=== PATIENT | female | born 2000 ===

== ENCOUNTER 2022-04-08 18:48 | Inpatient (IN) | payer MEDICAID ==
[2022-04-08] MEDS ORDERED: ACETAMINOPHEN 325 MG TAB PO PRN (21:40)
[2022-04-08] MEDS ORDERED: CARBOPROST TROMETHAMINE 250 MCG/1 ML INJ IM PRN (21:40)
[2022-04-08] MEDS ORDERED: BUTORPHANOL 2 MG/1 ML INJ IV PRN (21:40)
[2022-04-08] MEDS ORDERED: fentaNYL 100 MCG/2 ML INJ IV PRN (21:40)
[2022-04-08 21:45] LABS: Basophils % (Auto) 0.1 % (0.0-1.8); Eosinophils % (Auto) 0.2 % (0.0-4.3); Hematocrit 36.7 % (30.3-42.9); Hemoglobin 12.7 gm/dl (10.1-14.3); Lymphocytes # (Auto) 2.2 K/mm3 (1.2-5.4); Mean Corpuscular HGB Conc 35 % (30-34); Mean Corpuscular Volume 84 fl (79-97); Platelet Count 240 K/mm3 (140-440); Red Blood Count 4.35 M/mm3 (3.65-5.03); Red Cell Distribution Width 13.8 % (13.2-15.2)
[2022-04-08] MEDS ORDERED: LACTATED RINGERS 1,000 ML IV SCH (21:45)
--- NOTE | 2022-04-08 21:51 | History and Physical Report ---
History of Present Illness Date of examination: 04/08/22 Date of admission: 04/08/2022 Chief complaint: Induction of labor secondary to pre-eclampsia and post-due date. History of present illness: 22-year-old primagravida at 40 weeks gestation presents to labor and delivery for induction of labor secondary to pre-eclampsia and post due date. During a routine visit 2 days ago, blood pressure was >=140/90. The patient was scheduled for induction of labor today. She does not have a history of essential hypertension prior to , nor does she report a history of elevated blood pressure prior to 20 weeks gestation. However, full record is not available at this time to confirm this. Today, blood pressure is >=140/90 in labor and delivery. The patient denies headaches, diplopia, right upper quadrant pain, or scotomata. UPCR is elevated and estimated 24 hour urine protein is 420 mg. Hence, this patient fulfills the contemporary criteria for pre-eclampsia. As such, induction of labor is medically indicated at this gestational age. The patient is admitted to labor and delivery for induction of labor secondary to pre-eclampsia and post due date. 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 Family/Genetic History: diabetes, hypertension, other (Asthma) Social history: no significant social history - Obstetrical History Expected Date of Delivery: 04/08/22 Actual Gestation: 40 Week(s) 1 Day(s) : 1 Para: 0 Hx # Term Pregnancies: 0 Number of Pregnancies: 0 Spontaneous Abortions: 0 Induced : 0 Number of Living Children: 0 Medications and Allergies Allergies Allergy/AdvReac Type Severity Reaction Status Date / Time cefazolin Allergy Unknown Verified 04/08/22 21:10 Sulfa (Sulfonamide Allergy Unknown Verified 04/08/22 21:10 Antibiotics) Active Meds: Active Medications Acetaminophen (Acetaminophen 325 Mg Tab) 650 mg PO Q4H PRN PRN Reason: Pain, Mild (1-3) Butorphanol Tartrate (Butorphanol 2 Mg/1 Ml Inj) 2 mg IV Q2H PRN PRN Reason: Pain, Moderate(4-6) LABOR PAIN Carboprost Tromethamine (Carboprost Tromethamine 250 Mcg/1 Ml Inj) 250 mcg IM ONCE PRN PRN Reason: Uterine Bleeding Fentanyl (Fentanyl 100 Mcg/2 Ml Inj) 100 mcg IV Q2H PRN PRN Reason: Pain,Severe (7-10) LABOR PAIN Lactated Ringer's (Lactated Ringers) 1,000 mls @ 125 mls/hr IV DIRECT RODGER Oxytocin/Sodium Chloride (Pitocin/Ns 30 Unit/500ml) 30 units in 500 mls @ 40 mls/hr IV TITR RODGER; Protocol Misoprostol (Misoprostol 25 Mcg Tab) 25 mcg PO Q4H RODGER Stop: 04/09/22 10:01 Terbutaline Sulfate (Terbutaline 1 Mg/1 Ml Inj) 0.25 mg SUB-Q ONCE PRN PRN Reason: Hyperstimulation/Hypertonicity Review of Systems All systems: negative - Vital Signs Vital signs: Vital Signs Pulse Pulse Ox 92 H 97 04/08/22 20:07 04/08/22 20:07 Temp Pulse Resp BP Pulse Ox 91 H 135/80 97 04/08/22 21:47 04/08/22 21:28 04/08/22 21:47 - Physical Exam Cardiovascular: Regular rate Lungs: Positive: Normal air movement Abdomen: Positive: normal appearance Genitourinary (Female): Positive: normal external genitalia, normal perenium Vulva: both: normal Vagina: Positive: normal moisture Uterus: Positive: enlarged Adnexa: both: normal Anus/Rectum: Positive: normal perianal skin Extremities: Positive: normal Deep Tendon Reflex Grade: Normal +2 - Obstetrical FHR: category 1 Cervical Dilatation: 2.5 (Mid) Cervical Effacement Percentage: 50 (Medium) station: -3 Uterine Contraction Pattern: Irregular Results Result Diagrams: 04/08/22 20:45 04/08/22 20:45 Abnormal lab results 04/08/22 Range/Units 20:45 WBC 12.8 H (4.5-11.0) K/mm3 MCHC 35 H (30-34) % [place] % (Auto) 8.0 H (0.0-7.3) % [place] # (Auto) 1.0 H (0.0-0.8) K/mm3 Seg Neutrophils % 74.7 H (40.0-70.0) % Seg Neutrophils # 9.6 H (1.8-7.7) K/mm3 Urine Protein to Creatinine Ratio (UPCR)= 0.35. There is significant proteinuria. Estimated 24 hour urine protein= 420 mg Ultrasound: report reviewed (OB Ultrasound Limited= SLIUP. Vertex. Anterior placenta. EFW= 3460 g (36th %-ile). LORENZA= 10.4 cm.), image reviewed Assessment and Plan - Patient Problems (1) 40 weeks gestation of Current Visit: Yes Status: Acute Plan to address problem: care is up-to-date at [facility]. 1 hour glucose tolerance test is normal. The patient is GBS negative. (2) Pre-eclampsia, mild, third trimester Current Visit: Yes Status: Acute Plan to address problem: During a routine visit 2 days ago, blood pressure was >=140/90. The patient was scheduled for induction of labor today. She does not have a history of essential hypertension prior to , nor does she report a history of elevated blood pressure prior to 20 weeks gestation. However, full record is not available at this time to confirm this. Today, blood pressure is >=140/90 in labor and delivery. The patient denies headaches, diplopia, right upper quadrant pain, or scotomata. UPCR is elevated and estimated 24 hour urine protein is 420 mg. Hence, this patient fulfills the contemporary criteria for pre-eclampsia. As such, induction of labor is medically indicated at this gestational age. (3) Postmaturity , 40-42 weeks gestation Current Visit: Yes Status: Acute Plan to address problem: Today is the patient's due date. Per data from the ARRIVE trial, induction of labor at this gestational age can significantly lower frequency of delivery. Therefore, the plan is induction of labor. (4) Encounter for planned induction of labor Current Visit: Yes Status: Acute Plan to address problem: Boyce score is 4. Place Cook's catheter to gentle traction for cervical ripening. Add oral Cytotec to augment cervical ripening. In addition, add intravaginal Monoket to augment cervical ripening.
[2022-04-08] MEDS ORDERED: miSOPROStol 25 MCG TAB PO SCH (22:00)
[2022-04-08] MEDS ORDERED: OXYTOCIN DRIP 30 UNITS/500 ML BAG IV SCH (22:00)
[2022-04-08 22:02] LABS: Alanine Aminotransferase 23 units/L (7-56); Uric Acid 4.2 mg/dL (3.5-7.6)
--- NOTE | 2022-04-08 23:11 | Ultrasound Report ---
US OB follow up INDICATION / CLINICAL INFORMATION: Chronic hypertension COMPARISON: None available. TECHNIQUE: Using a transcutaneous probe, multiple grayscale, color Doppler, and spectral Doppler imag es of the uterus and fetus were captured and stored. FINDINGS: Single cephalic fetus heart rate 151. Amniotic fluid index within normal, LORENZA 10.4 cm. Anterior grade 3 placenta. measurements as documented on study result in an estimated gestational age of 37 weeks 4 days, EDC 04/25/2022. Estimated weight 2460 g; 36% growth percentile. IMPRESSION: 1. Single living fetus as detailed. Signer Name: Lacho Fletcher II, MD Signed: 04/08/2022 11:06 PM Workstation Name: [id number]
[2022-04-09] MEDS: TERBUTALINE 1 MG/1 ML INJ SUB-Q PRN ×2 (02:01→02:14)
[2022-04-09] MEDS ORDERED: TERBUTALINE 1 MG/1 ML INJ ONE (02:11)
[2022-04-09] MEDS ORDERED: SODIUM CHLORIDE 0.9% 1000 ML 1,000 ML VG SCH ×2 (02:15)
[2022-04-09] MEDS ORDERED: hydrALAZINE 20 MG/1 ML INJ IV STA (02:32)
[2022-04-09] MEDS ORDERED: TERBUTALINE 1 MG/1 ML INJ SUB-Q PRN (02:38)
--- NOTE | 2022-04-09 02:42 | Anesthesia Day of Surgery ---
Anesthesia Day of Surgery - Day of Surgery Patient Examined: Yes Patient H&P Reviewed: Yes Patient is NPO: Yes
--- NOTE | 2022-04-09 02:46 | Anesthesia Consultation ---
Anesthesia Consult and Med Hx Date of service: 04/09/22 - Airway Anesthetic Teeth Evaluation: Good Mallampati Class: Class II Intubation Access Assessment: Probably Good - Pulmonary Exam CTA: Yes - Cardiac Exam Cardiac Exam: RRR - Pre-Operative Health Status ASA Pre-Surgery Classification: ASA3 Proposed Anesthetic Plan: Spinal - Pulmonary Hx Smoking: No Hx Asthma: No COPD: No Hx Pneumonia: No - Cardiovascular System Hx Hypertension: Yes (CHTN) - Central Nervous System Hx Seizures: No Hx Psychiatric Problems: No - Endocrine Hx Renal Disease: No Hx End Stage Renal Disease: No Hx Hypothyroidism: No Hx Hyperthyroidism: No - Hematic Hx Anemia: No Hx Sickle Cell Disease: No - Other Systems Hx Alcohol Use: No Hx Substance Use: No Hx Obesity: Yes
[2022-04-09] MEDS ORDERED: AZITHROMYCIN/NS 500 MG/250 ML 500 MG/250 ML BAG IV ONE (06:08)
[2022-04-09] MEDS ORDERED: METOCLOPRAMIDE 10 MG/2 ML INJ IV ONE (06:08)
[2022-04-09] MEDS ORDERED: BICITRA ORAL LIQD 30ML PO ONE (06:08)
[2022-04-09] MEDS ORDERED: FAMOTIDINE 20 MG/2 ML INJ IV ONE (06:08)
[2022-04-09] MEDS ORDERED: GENTAMICIN 0 MG in SODIUM CHLORIDE 0.9% 100 ML IV ONE (06:08)
[2022-04-09] MEDS ORDERED: BUPIVACAINE/PF (0.5%) 5 MG/1 ML 30 ML VIAL INFILTRATI ONE (06:14)
[2022-04-09] MEDS ORDERED: ONDANSETRON 4 MG/2 ML INJ ONE (06:20)
--- NOTE | 2022-04-09 06:28 | Event Note ---
Date: 04/09/22 The cervix was ripened with Cook's catheter, oral Cytotec, and vaginal Monoket. Category II EFM noted. Conservative resuscitative measures (i.e. amnioinfusion, fluid bolus, position changes, and subcutaneous Terbutaline) applied. The patient progressed to 3 cm. Despite conservative resuscitative measures (i.e. amnioinfusion, fluid bolus, position changes, and subcutaneous Terbutaline) the electronic monitoring tracing progressed from category II to category III. Expeditied delivery was recommended. At that time, the patient was remote from complete cervical dilation and a vaginal delivery was impractical. Therefore, decision was made to proceed with an urgent primary low transverse section.
[2022-04-09] MEDS ORDERED: WATER FOR IRRIG STERILE 1,500 ML BOTTLE IR ONE (06:55)
[2022-04-09] MEDS ORDERED: SODIUM CHLORIDE 0.9% IRR 1,500 ML BOTTLE IR ONE (06:55)
[2022-04-09] MEDS ORDERED: GENTAMICIN/NS 120MG/100ML 120 MG/100 ML BAG IV ONE (07:00)
[2022-04-09] MEDS ORDERED: PHENYLEPHRINE/NS 1,000 MCG/10 ML SYRINGE (OR USE) IV ONE (07:18)
[2022-04-09 07:23] LABS: Creatinine,Urine 105.7 mg/dL (0.1-20.0)
[2022-04-09] MEDS ORDERED: LACTATED RINGERS 1,000 ML ONE ×2 (07:34→09:36)
[2022-04-09] MEDS ORDERED: dexAMETHasone 20 MG/5 ML VIAL ONE (07:34)
[2022-04-09 07:41] LABS: Hyaline Casts,Urine 4 /LPF; Mucus,Urine FEW /HPF; RBC,Urine < 1.0 /HPF (0.0-6.0)
[2022-04-09 07:51] LABS: Color,Urine Yellow (Yellow)
--- NOTE | 2022-04-09 09:03 | Procedure Note ---
OB Delivery Note - Delivery Date of Delivery: 04/09/22 Surgeon: NAPOLEON FUENTES Estimated blood loss: other (943 mL) - Section Preop diagnosis: other (1.) Category 3 EFM, 2.) Preeclampsia, 3.) Meconium) Postop diagnosis: other (1.) Same, 2.) Cephalopelvic disproportion) section procedure: section, primary low transverse Disposition: PACU Complications: none Narrative: PREOPERATIVE DIAGNOSES: 1. Intrauterine at 40-1/7 weeks. 2. Category III electronic monitoring tracing. 3. Pre-eclampsia. POSTOPERATIVE DIAGNOSES: 1. Same. 2. Cephalopelvic disproportion. PROCEDURE PERFORMED: Primary low-transverse section. SURGEON: Napoleon Fuentes M.D. ANESTHESIA: Spinal. FLUIDS: 1,900 mL LR. ESTIMATED BLOOD LOSS: 1,000 mL. QUANTITATIVE BLOOD LOSS: 943 mL. URINE OUTPUT: 500 mL COMPLICATIONS: None. PATHOLOGY: Placenta sent for pathologic examination. DISPOSITION: To PACU. FINDINGS: Female infant in cephalic presentation, weight 3,600 grams. Apgars were 6 at 1 minute, 7 at 5 minutes, and 8 at 10 minutes. Normal uterus, tubes, and ovaries were noted. The bony maternal pelvis had a smaller diameter inlet compared to the diameter of the head; hence, cephalopelvic disproportion was suspected. INDICATIONS: The patient is a 22-year-old 1, para 0 female, at 40 weeks gestation who presented to labor and delivery for induction of labor secondary to pre-eclampsia and post-due date. The cervix was ripened with Cook's catheter, oral Cytotec, and vaginal Monoket. The patient progressed to 3 cm. Despite conservative resuscitative measures (i.e. amnioinfusion, fluid bolus, position changes, and subcutaneous Terbutaline) the electronic monitoring tracing progressed from category II to category III. Expeditied delivery was recommended. At that time, the patient was remote from complete cervical dilation and a vaginal delivery was impractical. Therefore, decision was made to proceed with an urgent primary low transverse section. The procedure was described to the patient in detail including possible risks of bleeding, infection, injury to surrounding organs, and possible need for further surgery. Informed consent was obtained prior to proceeding with the procedure. PROCEDURE NOTE: The patient was taken to the operating room where spinal anesthesia was found to be adequate. The patient was prepped and draped in the usual sterile fashion in the dorsal supine position with a left-valle tilt. A Pfannenstiel skin incision was made with the scalpel and carried through to the underlying layer of fascia using the Bovie. The fascia was incised in the midline with the Bovie and extended laterally using the Bovie. David clamps were used to elevate the superior aspect of the fascial incision, which was elevated, and the underlying rectus muscles were dissected off using the Bovie. Attention was then turned to the inferior aspect of the fascial incision, which in similar fashion was grasped with Dvaid clamps, elevated, and the underlying rectus muscles were dissected off using the Bovie and Michaels scissors. The rectus muscles were in the midline with the Bovie. The peritoneum was sharply dissected, entered with the Metzenbaum scissors, and extended superiorly and inferiorly with the Bovie. There was good visualization of the bladder. The bladder blade was inserted. The vesicouterine peritoneum was identified with pickups and entered sharply using Metzenbaum scissors. This incision was extended laterally and the bladder flap was created digitally. The bladder blade was reinserted. The lower uterine segment was incised in a transverse fashion using the scalpel and extended using manual traction. Meconium stained fluid was noted. The 's head was delivered. The nose and mouth were bulb suctioned. There was a nuchal cord that was manually reduced. The remained of the infant was subsequently delivered atraumatically. The cord was clamped and cut. The infant was subsequently handed to the awaiting nursery nurse. Next, cord blood was obtained. Subsequent to the collection of this blood, the placenta was removed spontaneously intact with a 3-vessel cord noted. The uterus was exteriorized and cleared of all clots and debris. The uterine incision was repaired in 1 full-thickness layer using 0 Monocryl suture in a running fashion. The vesicouterine peritoneum was reapproximated with 3-0 Vicryl in a running fashion. Hemostasis was visualized. The uterus was returned to the abdomen. The pelvis was copiously irrigated. The uterine incision was reexamined and was noted to be hemostatic. The parietal peritoneum was reapproximated with 3-0 Vicryl in a running fashion. The rectus muscles were reapproximated in the midline using 2-0 Chromic. The fascia was closed with 0 Vicryl in a running fashion, the subcutaneous layer was closed with 3-0 Chromic, and the subdermal layer was reapproximated with 3-0 Vicryl. The skin edges were tension-free; therefore, the skin was reapproximated with Dermabond. Sponge, lap, and instrument counts were correct x2. The patient was stable at the completion of the procedure and was subsequently transferred to the recovery room in stable condition. Tranverse abdominal plane block for enhanced recovery after surgery (ERAS) was scheduled to be performed in the PACU by the Anesthesia team. - Infant A at 1 minute: 6 at 5 minutes: 7 Infant Gender: Female (Apgars 6/7/8. Weight 3600 g.)
[2022-04-09] MEDS ORDERED: SIMETHICONE 80 MG CHEW TAB PO PRN (10:00)
[2022-04-09] MEDS ORDERED: ONDANSETRON 4 MG/2 ML INJ IV PRN (10:00)
[2022-04-09] MEDS ORDERED: ACETAMINOPHEN 325 MG TAB PO PRN (10:00)
[2022-04-09] MEDS ORDERED: NALOXONE 0.4 MG/1 ML INJ IV PRN (10:00)
[2022-04-09] MEDS ORDERED: LANOLIN/ZINC/DIMETHICONE (LANSINOH) 7 GM TP PRN (10:00)
[2022-04-09] MEDS ORDERED: WITCH HAZEL/ GLYCERIN PAD TP PRN (10:00)
--- NOTE | 2022-04-09 11:09 | Progress Note ---
Spinal Anesthesia Block - Spinal Anesthesia Block Start Time: 06:30 Stop Time: 06:40 Performed by:: JENIFER THOMSON Procedure: Patient IDed, H&P reviewed, all questions and concerns were answered, and consent was signed. Timeout was performed at bedside. Patient in sitting position. Sterile prep and drape was performed. [3] ml of 1% lidocaine skin wheal at L[3]- L [4]. Needle introducer advanced. 25 gauge spinal needle advanced. Clear, free flowing CSF. negative blood, negative paresthesia. Spinal dose given. All needles removed. Patient tolerated procedure.
--- NOTE | 2022-04-09 11:11 | Progress Note ---
Regional Anesthesia Block - Regional Anesthesia Block Performed By:: JENIFER THOMSON Procedure: Patient consented for TAP block for post surgical pain management. Patient identified, monitors placed, and time out performed. TAP identified bilaterally via ultrasound. Skin prepped bilaterally with [chlorhexidine] and [22g stimuplex] needle advanced to the TAP. [Marcaine 0.22% 35ml] injected under ultrasound guidance on the [left] side. [Marcaine 0.22% 35ml] injected under ultrasound guidance on the [right] side. Negative aspiration every 5mL, No change in heart rate or rhythm. Patient tolerated the procedure well. No apparent complications seen.
[2022-04-09] MEDS ORDERED: MORPHINE 4 MG/1 ML INJ IV PRN (17:49)
[2022-04-09] MEDS ORDERED: LACTATED RINGERS 1,000 ML IV SCH (19:15)
[2022-04-10] MEDS: HYDROcodone/ACETAMINOPHEN 5-325 MG TAB PO PRN ×3 (03:14→17:51)
[2022-04-10] MEDS ORDERED: SODIUM CHLORIDE 0.9% 500 ML 500 ML IV SCH (06:00)
[2022-04-10 06:12] LABS: Basophils # (Auto) 0.1 K/mm3 (0.0-0.1); Basophils % (Auto) 0.6 % (0.0-1.8); Hematocrit 32.5 % (30.3-42.9); Hemoglobin 10.9 gm/dl (10.1-14.3); Lymphocytes # (Auto) 0.9 K/mm3 (1.2-5.4); Lymphocytes % (Auto) 5.9 % (13.4-35.0); Mean Corpuscular HGB Conc 34 % (30-34); Mean Corpuscular Volume 86 fl (79-97); Monocytes # (Auto) 0.6 K/mm3 (0.0-0.8); Monocytes % (Auto) 3.9 % (0.0-7.3); Platelet Count 212 K/mm3 (140-440); Red Blood Count 3.78 M/mm3 (3.65-5.03); Red Cell Distribution Width 14.4 % (13.2-15.2)
[2022-04-10] MEDS: ACETAMINOPHEN 500 MG TAB PO PRN ×3 (06:17→20:52)
[2022-04-10] MEDS: GENTAMICIN/NS 100 MG/100 ML 100 MG/100 ML BAG IV SCH ×3 (06:20→22:27)
--- NOTE | 2022-04-10 06:36 | Progress Note ---
Assessment and Plan A: POD # 1 - Febrile P: Gent and clindamycin started Continue with post op care CBC pending Subjective - Subjective Date of service: 04/10/22 Principal diagnosis: POD # 1 Interval history: Temp 100.6, and increase in Heart Rate secondary to Fever. Gent and clindamycin started Patient reports: appetite normal [place]: doing well Objective - Vital Signs Latest vital signs: Vital Signs Temp Pulse Resp BP BP Pulse Ox Pulse Ox 04/10/22 06:14 98 04/10/22 05:45 100.6 F H 04/10/22 04:53 99.5 F 119 H 18 132/53 97 04/10/22 03:13 98 04/10/22 01:13 99.6 F 108 H 18 130/60 98 04/09/22 23:30 98 04/09/22 21:25 98 04/09/22 21:16 98.3 F 99 H 18 129/59 98 04/09/22 20:35 98 04/09/22 18:25 97.8 F 90 18 116/48 99 04/09/22 11:40 98.7 F 79 14 106/51 99 99 04/09/22 09:55 98 F 90 20 101/42 100 04/09/22 09:45 94 H 18 93/48 99 04/09/22 09:30 96 H 18 93/50 99 04/09/22 09:16 90 18 97/56 99 04/09/22 09:06 90 18 88/64 99 04/09/22 09:00 91 H 18 110/57 99 04/09/22 08:53 97.8 F 103 H 23 107/56 99 Intake and Output 04/09/22 04/09/22 04/10/22 14:59 22:59 06:59 Intake Total 2100 240 480 Output Total 730 1250 200 Balance 1370 -1010 280 Intake: IV 2100 Intake, Free Water 240 480 Output: Urine 730 1250 200 Indwelling Catheter 1250 Void 200 Other: Total, Output Amount 250 200 # Voids Indwelling Catheter 1,400 Estimated Blood Loss 943 - Exam Breasts: Present: deferred Cardiovascular: Present: Regular rate Lungs: Present: Clear to auscultation Abdomen: Present: soft Uterus: Present: fundal height below umbilicus Extremities: Present: normal Deep Tendon Reflex Grade: Normal +2 Incision: Present: dressed - Labs Labs: Abnormal lab results 04/09/22 04/10/22 Range/Units Unknown 05:56 WBC 15.0 H (4.5-11.0) K/mm3 Lymph % (Auto) 5.9 L (13.4-35.0) % Lymph # (Auto) 0.9 L (1.2-5.4) K/mm3 Seg Neutrophils % 89.6 H (40.0-70.0) % Seg Neutrophils # 13.4 H (1.8-7.7) K/mm3 Urine Creatinine 105.7 H (0.1-20.0) mg/dL Urine Total Protein 37 H (5-11.8) mg/dL
--- NOTE | 2022-04-10 08:36 | Post Anesthesia Evaluation ---
- Post Anesthesia Evaluation Patient Participated: Yes Airway Patent: Yes Stable Respiratory Function: Yes Nausea/Vomiting: No Temp > 96.8F: Yes Pain Manageable: Yes Adequeate Hydration: Yes Anesthesia Complications: No Block Receding Appropriately: Yes Patient on Ventilator: No
[2022-04-10] MEDS ORDERED: IBUPROFEN 800 MG TAB PO PRN (14:44)
[2022-04-11] MEDS: HYDROcodone/ACETAMINOPHEN 5-325 MG TAB PO PRN (03:48)
--- NOTE | 2022-04-11 11:10 | Event Note ---
Date: 04/11/22 (3785) PPOD#2 with tachycardia, Dr Delvalle ordered EKG Rn called with Abn EKG Sinus tach, with multiple ventricle premature complex and probable left atrial enlargement Called hospitalist Dr. Hugo, informed of consult in place, discussed pt Per Dr. Hugo, start ns @125/hr Order placed. Pt without chest pain
[2022-04-11] MEDS ORDERED: SODIUM CHLORIDE 0.9% 1000 ML 1,000 ML IV SCH (11:15)
[2022-04-11 12:23] LABS: Basophils % (Auto) 0.1 % (0.0-1.8); Hematocrit 33.1 % (30.3-42.9); Hemoglobin 10.9 gm/dl (10.1-14.3); Lymphocytes # (Auto) 1.5 K/mm3 (1.2-5.4); Lymphocytes % (Auto) 8.7 % (13.4-35.0); Mean Corpuscular HGB Conc 33 % (30-34); Mean Corpuscular Volume 86 fl (79-97); Monocytes # (Auto) 1.2 K/mm3 (0.0-0.8); Monocytes % (Auto) 6.8 % (0.0-7.3); Platelet Count 229 K/mm3 (140-440); Red Blood Count 3.84 M/mm3 (3.65-5.03); Red Cell Distribution Width 14.2 % (13.2-15.2)
--- NOTE | 2022-04-11 14:40 | Progress Note ---
Assessment and Plan A: POD #2 Primary Csection Tachycardia, abn EKG P: Continue antibiotics consult with [facility] (Dr. Hugo) Continue routine PP orders Subjective - Subjective Principal diagnosis: POD # 2 Patient reports: appetite normal, voiding normally, pain well controlled, ambulating normally : in NICU Objective - Vital Signs Latest vital signs: Vital Signs Temp Pulse Resp BP BP Pulse Ox Pulse Ox 04/11/22 13:13 98.4 F 135 H 18 130/71 100 04/11/22 09:25 120 H 04/11/22 09:16 97.6 F 130 H 18 131/63 97 04/11/22 03:48 18 04/11/22 00:00 98.4 F 74 16 112/72 04/10/22 20:52 20 04/10/22 19:59 98.0 F 18 117/63 04/10/22 19:52 98 04/10/22 16:45 98.2 F 103 H 20 115/62 99 04/10/22 14:37 99.3 F Intake and Output 04/10/22 04/11/22 04/11/22 23:59 07:59 15:59 Intake Total 420 Balance 420 Intake: Oral 320 Intake, Free Water 100 Other: Total, Intake Amount 320 # Voids Void 1 - Exam Breasts: Present: deferred Cardiovascular: Present: Other (Tachycardia, EKG:ST, Ventricul premature complex, probale left atrial enlargement, consult to [facility] for eval) Lungs: Present: Clear to auscultation Abdomen: Present: normal appearance, soft, tenderness Uterus: Present: firm, fundal height below umbilicus Deep Tendon Reflex Grade: Normal +2 Incision: Present: dry, intact (durmabond) - Labs Labs: Abnormal lab results 04/11/22 Range/Units 10:54 WBC 16.9 H (4.5-11.0) K/mm3 Lymph % (Auto) 8.7 L (13.4-35.0) % [place] # (Auto) 1.2 H (0.0-0.8) K/mm3 Seg Neutrophils % 84.4 H (40.0-70.0) % Seg Neutrophils # 14.3 H (1.8-7.7) K/mm3
--- NOTE | 2022-04-11 17:41 | Consultation ---
History of Present Illness - Reason for Consult Consult date: 04/11/22 Medical management Requesting physician: MERARI SHRESTHA - History of Present Illness 22-year-old primagravida at 40 weeks gestation presents to labor and delivery for induction of labor secondary to pre-eclampsia and post due date. During a routine visit 2 days ago, blood pressure was >=140/90. The patient was scheduled for induction of labor today. She does not have a history of essential hypertension prior to , nor does she report a history of elevated blood pressure prior to 20 weeks gestation. However, full record is not available at this time to confirm this. Today, blood pressure is >=140/90 in labor and delivery. The patient denies headaches, diplopia, right upper quadrant pain, or scotomata. UPCR is elevated and estimated 24 hour urine protein is 420 mg. Hence, this patient fulfills the contemporary criteria for pre-eclampsia. As such, induction of labor is medically indicated at this gestational age. The patient was admitted to labor and delivery for induction of labor secondary to pre-eclampsia and post due date. Patient is s/p delivery Past History Past Medical History: other (Obesity) Past Surgical History: other (Cone biopsy) DIGITAL MEDIA DIRECTOR History: abnormal PAP smear Family/Genetic History: diabetes, hypertension, other (Asthma) Social history: no significant social history - Obstetrical History Expected Date of Delivery: 04/08/22 Actual Gestation: 40 Week(s) 1 Day(s) : 1 Para: 1 Hx # Term Pregnancies: 1 Number of Pregnancies: 0 Spontaneous Abortions: 0 Induced : 0 Number of Living Children: 0 Medications and Allergies Allergies Allergy/AdvReac Type Severity Reaction Status Date / Time cefazolin Allergy Unknown Verified 04/08/22 21:10 Sulfa (Sulfonamide Allergy Unknown Verified 04/08/22 21:10 Antibiotics) Review of Systems All systems: negative Past History Social history: no significant social history Medications and Allergies Allergies Allergy/AdvReac Type Severity Reaction Status Date / Time cefazolin Allergy Unknown Verified 04/08/22 21:10 Sulfa (Sulfonamide Allergy Unknown Verified 04/08/22 21:10 Antibiotics) Home Medications Medication Instructions Recorded Confirmed Last Taken Type No Known Home Medications [No 04/11/22 04/11/22 Unknown History Reported Home Medications] Active Meds: Active Medications Acetaminophen (Acetaminophen 500 Mg Tab) 1,000 mg PO Q6H PRN PRN Reason: Pain, Mild (1-3) Last Admin: 04/10/22 20:52 Dose: 1,000 mg Hydrocodone Bitart/Acetaminophen (Hydrocodone/Acetaminophen 5-325 Mg Tab) 1 each PO Q6H PRN PRN Reason: Pain, Moderate (4-6) Last Admin: 04/11/22 03:48 Dose: 1 each Lactated Ringer's (Lactated Ringers) 1,000 mls @ 125 mls/hr IV DIRECT RODGER Sodium Chloride (Nacl 0.9% 500 Ml) 500 mls @ 50 mls/hr IV DIRECT RODGER Last Admin: 04/10/22 06:19 Dose: 50 mls/hr Sodium Chloride (Nacl 0.9% 1000 Ml) 1,000 mls @ 125 mls/hr IV DIRECT RODGER Last Admin: 04/11/22 13:41 Dose: 125 mls/hr Ibuprofen (Ibuprofen 800 Mg Tab) 800 mg PO Q8H PRN PRN Reason: Pain, Mild (1-3) Morphine Sulfate (Morphine 4 Mg/1 Ml Inj) 4 mg IV Q3H PRN PRN Reason: Pain , Severe (7-10) Last Admin: 04/09/22 20:56 Dose: 4 mg Multi-Ingredient Ointment (Lanolin/Zinc/Dimethicone (Lansinoh) 7 Gm) 1 applic T P PRN PRN PRN Reason: dryness/cracking Naloxone HCl (Naloxone 0.4 Mg/1 Ml Inj) 0.1 mg IV Q2MIN PRN PRN Reason: Res Rate </= 8 or 02 SAT < 92% Ondansetron HCl (Ondansetron 4 Mg/2 Ml Inj) 4 mg IV Q8H PRN PRN Reason: Nausea And Vomiting Simethicone (Simethicone 80 Mg Chew Tab) 80 mg PO Q6H PRN PRN Reason: Gas pain Sodium Chloride (Sodium Chloride 0.9% 10 Ml Flush Syringe) 10 ml IV PRN NR Stop: 04/14/22 08:59 Witch Ananya/Glycerin (Witch Ananya/ Glycerin Pad) 1 each TP PRN PRN PRN Reason: Hemorrhoids/cleansing/soothing Exam - Constitutional Vitals: Temp Pulse Resp BP Pulse Ox 98.4 F 135 H 18 130/71 100 04/11/22 13:13 04/11/22 13:13 04/11/22 13:13 04/11/22 13:13 04/11/22 13:13 General appearance: Present: no acute distress, well-nourished - EENT Eyes: Present: PERRL ENT: hearing intact, clear oral mucosa - Neck Neck: Present: supple, normal ROM - Respiratory Respiratory effort: normal Respiratory: bilateral: CTA - Cardiovascular Heart rate: 120 Rhythm: regular Heart Sounds: Present: S1 & S2. Absent: rub, click - Extremities Extremities: pulses symmetrical, No edema Peripheral Pulses: within normal limits - Abdominal General gastrointestinal: Present: soft, non-tender, non-distended, normal bowel sounds Female genitourinary: Present: normal - Integumentary Integumentary: Present: clear, warm, dry - Musculoskeletal Musculoskeletal: gait normal, strength equal bilaterally - Psychiatric Psychiatric: appropriate mood/affect, intact judgment & insight - Neurologic Neurologic: CNII-XII intact, moves all extremities - Allied Health Allied health notes reviewed: nursing, case management Results - Labs CBC & Chem 7: 04/12/22 03:45 04/08/22 20:45 Labs: Abnormal lab results 04/11/22 Range/Units 10:54 WBC 16.9 H (4.5-11.0) K/mm3 Lymph % (Auto) 8.7 L (13.4-35.0) % [place] # (Auto) 1.2 H (0.0-0.8) K/mm3 Seg Neutrophils % 84.4 H (40.0-70.0) % Seg Neutrophils # 14.3 H (1.8-7.7) K/mm3 Short CBC 04/11/22 Range/Units 10:54 WBC 16.9 H (4.5-11.0) K/mm3 Hgb 10.9 (10.1-14.3) gm/dl Hct 33.1 (30.3-42.9) % Plt Count 229 (140-440) K/mm3 Short CBC 04/11/22 04/12/22 Range/Units 10:54 03:45 WBC 16.9 H 14.1 H (4.5-11.0) K/mm3 Hgb 10.9 11.0 (10.1-14.3) gm/dl Hct 33.1 33.4 (30.3-42.9) % Plt Count 229 222 (140-440) K/mm3 Assessment and Plan - Patient Problems (1) Tachycardia Current Visit: Yes Status: Acute Plan to address problem: Differential diagnosis of volume depletion versus bacteremia Urine normal IV fluids for now Empiric Rocephin for now (2) SIRS (systemic inflammatory response syndrome) Current Visit: Yes Status: Acute Plan to address problem: Patient has leukocytosis IV Rocephin empirically No focus of infection found (3) DVT prophylaxis Current Visit: Yes Status: Acute Plan to address problem: On anticoagulation and GI prophylaxis
[2022-04-12] MEDS ORDERED: cefTRIAXone/NS 2 GM/100 ML 2 GM/100 ML BAG IV ONE (04:17)
[2022-04-12] MEDS ORDERED: SODIUM CHLORIDE 0.9% 1000 ML 1,000 ML IV SCH (04:30)
--- NOTE | 2022-04-12 04:39 | Event Note ---
Date: 04/12/22 Consult seen by hospitalist with SIRS. pt allergic to cefazolin therefore will give broad spectrum abx for another 24hrs until maternal tacchycardia resolves and will follow cbc as well
[2022-04-12 04:58] LABS: Basophils % (Auto) 0.2 % (0.0-1.8); Eosinophils # (Auto) 0.1 K/mm3 (0.0-0.4); Eosinophils % (Auto) 0.5 % (0.0-4.3); Hematocrit 33.4 % (30.3-42.9); Lymphocytes % (Auto) 14.3 % (13.4-35.0); Mean Corpuscular HGB Conc 33 % (30-34); Mean Corpuscular Volume 87 fl (79-97); Monocytes # (Auto) 1.3 K/mm3 (0.0-0.8); Monocytes % (Auto) 9.3 % (0.0-7.3); Platelet Count 222 K/mm3 (140-440); Red Blood Count 3.83 M/mm3 (3.65-5.03); Red Cell Distribution Width 14.5 % (13.2-15.2)
[2022-04-12 05:27] LABS: Alanine Aminotransferase 29 units/L (7-56); Blood Urea Nitrogen 7 mg/dL (7-17); Hemolysis Index 4
[2022-04-12 05:36] LABS: BUN/Creatinine Ratio 18
[2022-04-12] MEDS: GENTAMICIN/NS 120MG/100ML 120 MG/100 ML BAG IV SCH ×3 (06:14→23:07)
[2022-04-12] MEDS: VANCOMYCIN/NS 1 GM/250 ML 1 GM/250 ML BAG IV SCH ×2 (07:23→18:44)
--- NOTE | 2022-04-12 09:57 | Electrocardiograph Report ---
[facility] Test Date: 2022-04-11 Test Time: 09:45:31 Pat Name: JONY Salcidopartment: Room: [facility] 1 Gender: F Hospital Food Service Worker: MARIO ALBETRO : 2000 Requested By: MERARI SHRESTHA Order Number: [id number] Reading MD: Perry Cason Measurements Intervals [place] Rate: 135 P: 50 ME: 124 QRS: 68 QRSD: 87 T: -10 QT: 292 QTc: 436 Interpretive Statements Sinus tachycardia Multiple ventricular premature complexes Probable left atrial enlargement No previous ECG available for comparison Electronically Signed On 04-12-2022 9:57:45 EDT by Perry Cason
[2022-04-13] MEDS: VANCOMYCIN/NS 1 GM/250 ML 1 GM/250 ML BAG IV SCH ×2 (05:41→16:45)
[2022-04-13] MEDS: GENTAMICIN/NS 120MG/100ML 120 MG/100 ML BAG IV SCH ×2 (07:35→13:05)
--- NOTE | 2022-04-13 15:12 | Progress Note ---
Assessment and Plan (1) Tachycardia Current Visit: Yes Status: Acute Plan to address problem: Differential diagnosis of volume depletion versus bacteremia Urine normal IV fluids for now Empiric clindamycin for now (2) SIRS (systemic inflammatory response syndrome) Current Visit: Yes Status: Acute Plan to address problem: Patient has leukocytosis IV clindamycin empirically No focus of infection found (3) DVT prophylaxis Current Visit: Yes Status: Acute Plan to address problem: On anticoagulation and GI prophylaxis Subjective Date of service: 04/13/22 Principal diagnosis: POD # 2 Interval history: Patient seen and examined. Medical records and medication list reviewed. No acute event overnight noted by the RN. Vitals noted and stable No new complaints Objective - Exam Narrative Exam: General appearance: Present: no acute distress, obese - EENT Eyes: Present: PERRL ENT: hearing intact, clear oral mucosa - Neck Neck: Present: supple, normal ROM - Respiratory Respiratory effort: normal Respiratory: bilateral: CTA - Cardiovascular Heart rate: 120 Rhythm: regular Heart Sounds: Present: S1 & S2. Absent: rub, click - Extremities Extremities: pulses symmetrical, No edema Peripheral Pulses: within normal limits - Abdominal General gastrointestinal: Present: soft, non-tender, non-distended, normal bowel sounds Female genitourinary: Present: normal - Integumentary Integumentary: Present: clear, warm, dry - Musculoskeletal Musculoskeletal: gait normal, strength equal bilaterally - Psychiatric Psychiatric: appropriate mood/affect, intact judgment & insight - Neurologic Neurologic: CNII-XII intact, moves all extremities - Allied Health Allied health notes reviewed: nursing, case management - Constitutional Vitals: Vital Signs - 12hr 04/13/22 04/13/22 04/13/22 04:00 08:29 12:19 Temperature 98.7 F 98.0 F 98.4 F Pulse Rate 92 H 94 H Respiratory 20 20 Rate Blood Pressure 116/70 117/72 O2 Sat by Pulse 100 100 Oximetry - Labs CBC & Chem 7: 04/14/22 00:51 04/12/22 03:45
--- NOTE | 2022-04-13 19:46 | Progress Note ---
Assessment and Plan A: POD 4 primary Csection Leukocytosis SIRS Tachycardia P:Continue PP care Ct abdomen/pelvis with contrast Anticipated discharge home tomorrow Subjective - Subjective Date of service: 04/13/22 Principal diagnosis: POD # 4 Patient reports: appetite normal, voiding normally, pain well controlled, ambulating normally [place]: in NICU Objective - Vital Signs Latest vital signs: Vital Signs Temp Pulse Resp BP BP Pulse Ox Pulse Ox 04/13/22 16:31 98.3 F 108 H 20 124/67 100 04/13/22 12:19 98.4 F 94 H 20 117/72 100 04/13/22 08:29 98.0 F 92 H 20 116/70 100 04/13/22 04:00 98.7 F 04/13/22 00:00 98.8 F 77 18 115/79 04/12/22 20:00 98.6 F 77 16 115/78 99 Intake and Output 04/13/22 04/13/22 04/13/22 07:59 15:59 23:59 Intake Total 500 1230 600 Balance 500 1230 600 Intake: IV 300 150 CLEOCIN 900 MG/50 mL 900 50 50 mg In 50 ml @ 100 mls/hr IV Q8H [facility] Rx#:[id number] GENTAMICIN/NS 120MG/100ML 100 120 mg In 100 ml @ 200 mls/hr IV Q8H [facility] Rx#: [id number] VANCOMYCIN/NS 1 GM/250 ML 250 1 gm In 250 ml @ 166.667 mls/hr IV Q12H [facility] Rx#: [id number] Oral 200 240 240 Intake, Free Water 840 360 Other: Total, Intake Amount 200 240 240 # Voids Void 1 2 2 # Bowel Movements 1 - Exam Breasts: Present: deferred Cardiovascular: Present: Regular rate Lungs: Present: Clear to auscultation Abdomen: Present: normal appearance, soft Uterus: Present: fundal height below umbilicus Extremities: Present: normal Deep Tendon Reflex Grade: Normal +2 Incision: Present: normal, dry, intact
--- NOTE | 2022-04-14 01:05 | Cat Scan Report ---
CT abdomen pelvis wo/w con INDICATION / CLINICAL INFORMATION: persistent Leucocytosis, SIRS; POD#4 C/S. Abdominal pain TECHNIQUE: CT of the abdomen and pelvis performed with and without 100 mL Omnipaque [address] scans at this location are performed using CT dose reduction for ALARA by means of automated exposure control . COMPARISON: None available. FINDINGS: Abdomen and pelvis: The lower lungs are grossly clear. The exam is limited by mild respiratory motion artifact. The liver, gallbladder spleen pancreas adrenal glands and kidneys appear grossly unremarka ble. There may be small sludge within the gallbladder but measure artifact limits evaluation of the g allbladder. There is slight enhancement involving the distal tip of the appendix. The more proximal appendix is a ir-filled and appears unremarkable. Shotty retroperitoneal nodes identified throughout the perinephri c region. Review of the pelvis demonstrates evidence of recent section. There is intermixed gas and fluid along the endometrial canal. Urinary bladder wall appears thickened and somewhat irregu lar. There is minimal free pelvic fluid. No drainable fluid collection is appreciated to suggest absc ess at this time. Small fat-containing periumbilical hernia. Review of bone windows demonstrates mild lumbar degenerative change IMPRESSION: 1. Evidence of recent section. Intermixed gas and fluid is again identified within the endom etrial canal which is ultimately nonspecific as endometritis could have a similar appearance 2. No intra-abdominal abscess appreciated. 3. Slight enhancement involving the distal tip at the appendix is ultimately nonspecific given recent surgery and small free pelvic fluid. Ultimately early acute appendicitis is difficult to completely exclude. 4. Mild urinary bladder thickening is probably secondary to recent section but cystitis coul d have a similar appearance. Signer Name: Chandu Herr MD Signed: 04/14/2022 1:01 AM Workstation Name: [email or web address]
[2022-04-14 01:23] LABS: Basophils % (Auto) 0.4 % (0.0-1.8); Eosinophils # (Auto) 0.4 K/mm3 (0.0-0.4); Hematocrit 29.1 % (30.3-42.9); Hemoglobin 9.6 gm/dl (10.1-14.3); Lymphocytes # (Auto) 2.8 K/mm3 (1.2-5.4); Lymphocytes % (Auto) 22.3 % (13.4-35.0); Mean Corpuscular HGB Conc 33 % (30-34); Mean Corpuscular Volume 86 fl (79-97); Monocytes # (Auto) 1.2 K/mm3 (0.0-0.8); Monocytes % (Auto) 9.4 % (0.0-7.3); Platelet Count 313 K/mm3 (140-440); Red Blood Count 3.37 M/mm3 (3.65-5.03); Red Cell Distribution Width 14.4 % (13.2-15.2)
--- NOTE | 2022-04-14 14:19 | Progress Note ---
Assessment and Plan A: POD #5 Asymptomatic Anemia Tachycardia Systemic Inflammatory Response Syndrome P: Follow Routine PostOP Orders Increase Dietary Iron Complete last dose of IV Clindamycin D/C home tonight RTO in 1 Week Subjective - Subjective Date of service: 04/14/22 Principal diagnosis: POD # 4 Patient reports: appetite normal, voiding normally, pain well controlled, flatus, bowel movement, ambulating normally : in NICU, bottle feeding Objective - Vital Signs Latest vital signs: Vital Signs Temp Pulse Resp BP BP Pulse Ox Pulse Ox 04/14/22 09:09 100 04/14/22 08:30 97.5 F L 99 H 20 108/66 100 04/14/22 01:07 97.9 F 96 H 18 115/69 100 04/13/22 19:30 99 04/13/22 16:31 98.3 F 108 H 20 124/67 100 Intake and Output 04/13/22 04/14/22 04/14/22 22:59 06:59 14:59 Intake Total 770 170 320 Balance 770 170 320 Intake: IV 50 50 CLEOCIN 900 MG/50 mL 900 50 50 mg In 50 ml @ 100 mls/hr IV Q8H [facility] Rx#:[id number] Oral 360 120 320 Intake, Free Water 360 Other: Total, Intake Amount 120 120 320 # Voids Void 2 1 1 - Exam Breasts: Present: normal Cardiovascular: Present: Regular rate Lungs: Present: Clear to auscultation, Normal air movement Abdomen: Present: normal appearance, soft, normal bowel sounds Uterus: Present: normal, firm, fundal height below umbilicus Extremities: Present: normal Incision: Present: normal, dry, intact - Labs Labs: Abnormal lab results 04/14/22 Range/Units 00:51 WBC 12.7 H (4.5-11.0) K/mm3 RBC 3.37 L (3.65-5.03) M/mm3 Hgb 9.6 L (10.1-14.3) gm/dl Hct 29.1 L (30.3-42.9) % [place] % (Auto) 9.4 H (0.0-7.3) % [place] # (Auto) 1.2 H (0.0-0.8) K/mm3 Seg Neutrophils # 8.3 H (1.8-7.7) K/mm3
--- NOTE | 2022-04-14 14:22 | Discharge Summary ---
Providers - Providers Date of Admission: 04/08/22 21:40 Date of discharge: 04/14/22 Attending physician: MERARI SHRESTHA 04/11/22 10:59 Consult to Physician [CONS] Stat Comment: Consulting Provider: ASIM ORTIZ Physician Instructions: Please evaluate patient Reason For Exam: abnormal Ekg Primary care physician: MERARI SHRESTHA Hospitalization Reason for admission: induction of labor Delivery: Procedure: primary low transverse Episiotomy: none Laceration: none Incision: normal, dry, intact Other procedures: none complications: other (tachycardia; Systemic Infammatory Response Syndrome) Discharge diagnosis: IUP at term delivered Condition at discharge: Good Disposition: 01 HOME / SELF CARE / HOMELESS Plan - Provider Discharge Summary Activity: routine, no sex for 6 weeks, no heavy lifting 4 weeks, no strenuous exercise Diet: routine Instructions: routine Additional instructions: [] Smoking cessation referral if applicable(refer to patient education folder for contact #) [] Refer to [facility]'s [facility] Booklet Call your doctor immediately for: * Fever > 100.5 * Heavy vaginal bleeding ( >1 pad per hour) * Severe persistent headache * Shortness of breath * Reddened, hot, painful area to leg or breast * Drainage or odor from incision. * Keep incision clean and dry at all times and follow doctor's instructions regarding bathing/showering - Follow up plan Follow up: MERARI SHRESTHA MD [Primary Care Provider] - 7 Days
--- NOTE | 2022-04-14 15:45 | Progress Note ---
Assessment and Plan (1) Tachycardia Current Visit: Yes Status: Acute Plan to address problem: Differential diagnosis of volume depletion versus bacteremia Urine normal IV fluids for now Empiric clindamycin for now (2) SIRS (systemic inflammatory response syndrome) Current Visit: Yes Status: Acute Plan to address problem: Patient has leukocytosis IV clindamycin empirically No focus of infection found (3) DVT prophylaxis Current Visit: Yes Status: Acute Plan to address problem: On anticoagulation and GI prophylaxis Subjective Date of service: 04/14/22 Principal diagnosis: POD # 2 Interval history: Patient seen and examined. Medical records and medication list reviewed. No acute event overnight noted by the RN. Vitals noted and stable No new complaints Objective - Exam Narrative Exam: General appearance: Present: no acute distress, obese - EENT Eyes: Present: PERRL ENT: hearing intact, clear oral mucosa - Neck Neck: Present: supple, normal ROM - Respiratory Respiratory effort: normal Respiratory: bilateral: CTA - Cardiovascular Heart rate: 120 Rhythm: regular Heart Sounds: Present: S1 & S2. Absent: rub, click - Extremities Extremities: pulses symmetrical, No edema Peripheral Pulses: within normal limits - Abdominal General gastrointestinal: Present: soft, non-tender, non-distended, normal bowel sounds Female genitourinary: Present: normal - Integumentary Integumentary: Present: clear, warm, dry - Musculoskeletal Musculoskeletal: gait normal, strength equal bilaterally - Psychiatric Psychiatric: appropriate mood/affect, intact judgment & insight - Neurologic Neurologic: CNII-XII intact, moves all extremities - Allied Health Allied health notes reviewed: nursing, case management - Constitutional Vitals: Vital Signs - 12hr 04/14/22 04/14/22 08:30 09:09 Temperature 97.5 F L Pulse Rate 99 H Respiratory 20 Rate Blood Pressure 108/66 [Right] O2 Sat by Pulse 100 Oximetry O2 Sat by Pulse 100 Oximetry [ Posterior Bilateral Upper Lobe] - Labs CBC & Chem 7: 04/14/22 00:51 04/12/22 03:45 Labs: Abnormal lab results 04/14/22 Range/Units 00:51 WBC 12.7 H (4.5-11.0) K/mm3 RBC 3.37 L (3.65-5.03) M/mm3 Hgb 9.6 L (10.1-14.3) gm/dl Hct 29.1 L (30.3-42.9) % [place] % (Auto) 9.4 H (0.0-7.3) % [place] # (Auto) 1.2 H (0.0-0.8) K/mm3 Seg Neutrophils # 8.3 H (1.8-7.7) K/mm3
[2022-04-14 20:53] VITALS: BP 121/76
== END 2022-04-14 21:00 | disposition home or self-care (01) | DRG 765 ==
LOC: TRG 18:48 → LD 18:51 → TRG 21:40 → APU 04-09 08:33 → OB 04-09 10:42
PROVIDERS: ADMIT Obstetrics & Gynecology; ATTEND Obstetrics & Gynecology
PROC: 10D00Z1 Extraction of Products of Conception, Low, Open Approach (ICD-10-PCS; principal; 2022-04-09)
PROC: 3E0T3BZ Introduction of Anesthetic Agent into Peripheral Nerves and Plexi, Percutaneous Approach (ICD-10-PCS; 2022-04-09)
DX: O14.04 Mild to moderate pre-eclampsia, complicating childbirth (principal); R65.10 Systemic inflammatory response syndrome (SIRS) of non-infectious origin without acute organ dysfunction; Z3A.40 40 weeks gestation of pregnancy; Z37.0 Single live birth; Z20.822 Contact with and (suspected) exposure to COVID-19; O48.0 Post-term pregnancy; O10.92 Unspecified pre-existing hypertension complicating childbirth; O77.0 Labor and delivery complicated by meconium in amniotic fluid; O33.9 Maternal care for disproportion, unspecified; O99.893 Other specified diseases and conditions complicating puerperium; R00.0 Tachycardia, unspecified; O90.81 Anemia of the puerperium; O90.89 Other complications of the puerperium, not elsewhere classified; Z88.2 Allergy status to sulfonamides; Z88.8 Allergy status to other drugs, medicaments and biological substances
CPT/HCPCS: 36415; 74178; 76816; 80053; 81001; 82565; 82570; 83615; 84156; 84450; 84460; 84550; 85025; 85027; 86850; 86900; 86901; 88307; 93005; G0378; J3490; J7121; J7502; J1100; J1580; J2270; J2370; J2405; J2765; J3105; J3370; J7030; J7040; J7120; Q9967; U0003